=== PATIENT | female | born 1975 | race African-American/Black ===

== ENCOUNTER → 2019-04-25 08:29 | Outpatient (CLI) | payer OTHER, SELFPAY ==
--- NOTE | 2019-04-25 08:30 | DI.MRI.S_ITS ---
PROCEDURE: MR THORACIC SPINE WO CON INDICATIONS: Chronic thoracic pain TECHNIQUE: Noncontrast sagittal T1 spine echo and T2 fast spin echo, sagittal STIR, axial T1 and T2 fast spin echo through the thoracic spine. COMPARISON: None. FINDINGS: Image quality: Excellent. Alignment and Curvature: There is normal bony alignment. Bone Marrow: Marrow is of normal overall signal. No acute vertebral body compression fractures. Spinal Cord: Visualized spinal cord is normal in size and signal. Paraspinous Soft Tissues: No paravertebral masses. Miscellaneous: On axial images, central canal and foramina appear widely patent at all scanned levels. IMPRESSION: Unremarkable thoracic spine MRI. No cord signal abnormality. No canal stenosis or foraminal stenosis. No significant degenerative change. Dictated by: Rony Bethea M.D. on 04/25/2019 at 9:26 Approved by: Rony Bethea M.D. on 04/25/2019 at 9:27
== END ==
PROVIDERS: PCP Nurse Practitioner Gerontology; Visit Provider Physical Medicine & Rehabilitation
DX: M54.6 Pain in thoracic spine (principal); M54.14 Radiculopathy, thoracic region; G89.29 Other chronic pain
CPT/HCPCS: 72146

== ENCOUNTER → 2020-03-30 12:19 | Outpatient (CLI) | payer OTHER, SELFPAY ==
[2020-03-30 12:38] LABS: Hematocrit 32.5 % (36-46); Hemoglobin 10.2 g/dL (12.0-16.0); Mean Corpuscular HGB Conc 31.4 % (30-36); Mean Corpuscular Hemoglobin 24.8 PG (26-34); Platelet Count 156 X10^3/uL (150-400); Red Blood Cell Count 4.12 X10^6/uL (4.0-5.2); Red Cell Distribution Width 17.3 % (11.6-14.8); White Blood Cell Count 5.4 X10^3/uL (4.5-11.0)
[2020-03-30 13:07] LABS: Alanine Aminotransferase 17 IU/L (<35); Albumin 4.4 g/dL (3.5-5.0); Albumin Globulin Ratio 1.2 (1.0-2.8); Alkaline Phosphatase 41 U/L (38-126); Aspartate Aminotransferase 28 IU/L (14-36); BUN Creatinine Ratio 9.4 (6-22); Bilirubin Total 0.8 mg/dL (0.2-1.3); Blood Urea Nitrogen 5 mg/dL (7-17); Calcium 9.2 mg/dL (8.4-10.2); Carbon Dioxide 31 mmol/L (22-32); Chloride 102 mmol/L (98-107); Cholesterol 175 mg/dL (140-199); Estimated Glomerular Filt Rate > 60.0 mL/min (>60); Globulin 3.7 g/dL (1.7-4.1); Glucose 113 mg/dL (70-100); HDL Cholesterol 49 mg/dL (40-60); HEMOLYSIS < 15 (0-50); LDL Cholesterol Calculated 115 mg/dL (<100); Potassium 4.6 mmol/L (3.4-5.1); Sodium 136 mmol/L (137-145); Total Protein 8.1 g/dL (6.3-8.2); Triglycerides 56 mg/dL (35-150)
[2020-03-30 13:48] LABS: TSH w/ Reflex to FT4 1.83 uIU/mL (0.47-4.68)
[2020-03-30 18:20] LABS: Hemoglobin A1C% w Est Avg Glu 6.8 % (4.0-6.0)
== END ==
PROVIDERS: PCP Registered Nurse Diabetes Educator; Referring Provider Registered Nurse Diabetes Educator; Visit Provider Registered Nurse Diabetes Educator
DX: E66.9 Obesity, unspecified (principal); R03.0 Elevated blood-pressure reading, without diagnosis of hypertension; Z00.00 Encounter for general adult medical examination without abnormal findings; R73.01 Impaired fasting glucose
CPT/HCPCS: 36415; 80053; 80061; 83036; 84443; 85027

== ENCOUNTER → 2020-04-03 10:19 | Outpatient (CLI) | payer OTHER, SELFPAY ==
[2020-04-03 10:45] LABS: Hemoglobin A1C% w Est Avg Glu 6.8 % (4.0-6.0)
[2020-04-03 10:57] LABS: HEMOLYSIS < 15 (0-50); Iron 48 ug/dL (37-170)
[2020-04-03 11:09] LABS: Percent Iron Saturation 10 % (15-50); Total Iron Binding Capacity 498 ug/dL (265-497); Transferrin 403 mg/dL (206-381)
== END ==
PROVIDERS: PCP Registered Nurse Diabetes Educator; Referring Provider Registered Nurse Diabetes Educator; Visit Provider Registered Nurse Diabetes Educator
DX: D50.9 Iron deficiency anemia, unspecified (principal); R73.01 Impaired fasting glucose; R73.09 Other abnormal glucose
CPT/HCPCS: 36415; 83036; 83540; 83550

== ENCOUNTER → 2020-05-13 15:05 | Outpatient (CLI) | payer OTHER, SELFPAY ==
--- NOTE | 2020-05-13 | DI.MG.S_ITS ---
BILATERAL DIGITAL SCREENING MAMMOGRAM 3D/2D WITH CAD: 05/13/2020 CLINICAL: Routine screening. Comparison is made to exam dated: 02/28/2019 mammogram - [facility]. The tissue of both breasts is heterogeneously dense. This may lower the sensitivity of mammography. Current study was also evaluated with a Computer Aided Detection (CAD) system. No significant masses, calcifications, or other findings are seen in either breast. There has been no significant interval change. IMPRESSION: NEGATIVE There is no mammographic evidence of malignancy. A 1 year screening mammogram is recommended. This exam was interpreted at Station ID: [id number]. NOTE: For mammograms, a report in lay terms will be sent to the patient. Approximately 15% of breast malignancies will not be visualized mammographically. In the management of a palpable breast mass, a negative mammogram must not discourage biopsy of a clinically suspicious lesion. Electronically Signed By: Lucy siddiqui/adryan:05/13/2020 16:36:10 letter sent: Normal Exam ACR BI-RADS Category 1: Negative 3341F
== END ==
PROVIDERS: PCP Registered Nurse Diabetes Educator; Referring Provider Registered Nurse Diabetes Educator; Visit Provider Registered Nurse Diabetes Educator
DX: Z12.31 Encounter for screening mammogram for malignant neoplasm of breast (principal)
CPT/HCPCS: 77063; 77067

== ENCOUNTER → 2020-09-01 07:44 | Outpatient (CLI) | payer OTHER, SELFPAY ==
--- NOTE | 2020-09-01 07:45 | DI.RAD.S_ITS ---
PROCEDURE: XR SHOULDER RT MIN 2V INDICATIONS: RIGHT SHOULDER PAIN TECHNIQUE: 3 views of the shoulder were acquired. COMPARISON: None. FINDINGS: Bones: No fractures or dislocations. No suspicious bony lesions. Visualized ribs appear intact. Soft tissues: No suspicious soft tissue calcifications. 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 Dictated by: Wolfgang Schultz M.D. on 09/01/2020 at 9:23 Approved by: Wolfgang Schultz M.D. on 09/01/2020 at 9:24
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
== END ==
PROVIDERS: PCP Registered Nurse Diabetes Educator; Referring Provider Physical Medicine & Rehabilitation; Visit Provider Physical Medicine & Rehabilitation
DX: M25.511 Pain in right shoulder (principal); M25.519 Pain in unspecified shoulder; M54.2 Cervicalgia; M19.011 Primary osteoarthritis, right shoulder
CPT/HCPCS: 72050; 73030

== ENCOUNTER → 2020-10-01 07:49 | Outpatient (CLI) | payer OTHER, SELFPAY ==
--- NOTE | 2020-10-01 07:50 | DI.MRI.S_ITS ---
PROCEDURE: MR CERVICAL SPINE WO CON INDICATIONS: Neck pain, paresthesia TECHNIQUE: Noncontrast sagittal T1 spin echo and T2 fast spin echo, sagittal STIR, foraminal oblique sagittal T2 fast spin echo, and axial gradient echo or T2 fast spin echo through the cervical spine. COMPARISON: None. FINDINGS: Image quality: Excellent. Alignment and Curvature: Normal cervical spine vertebral body height and alignment. Bone Marrow: No suspicious focal marrow signal abnormality or bone marrow edema. Spinal Cord: Normal morphology and signal intensity of the cervical cord. Regional Soft Tissues: Prevertebral and paraspinous soft tissues are within normal limits. C2-C3: No spinal canal or neural foraminal stenosis. C3-C4: No spinal canal or neural foraminal stenosis. C4-C5: No spinal canal or neural foraminal stenosis. C5-C6: No spinal canal or neural foraminal stenosis. C6-C7: No spinal canal or neural foraminal stenosis. C7-T1: No spinal canal or neural foraminal stenosis. IMPRESSION: No significant degenerative change or other finding to explain neck pain or radicular symptoms. Dictated by: Eliceo Arzola M.D. on 10/01/2020 at 10:20 Approved by: Eliceo Arzola M.D. on 10/01/2020 at 10:23
== END ==
PROVIDERS: PCP Registered Nurse Diabetes Educator; Referring Provider Physical Medicine & Rehabilitation; Visit Provider Physical Medicine & Rehabilitation
DX: M54.2 Cervicalgia (principal); M25.519 Pain in unspecified shoulder; M54.6 Pain in thoracic spine; G89.29 Other chronic pain
CPT/HCPCS: 72141

== ENCOUNTER → 2021-06-14 11:05 | Outpatient (CLI) | payer OTHER, SELFPAY ==
--- NOTE | 2021-06-14 | DI.MG.S_ITS ---
BILATERAL DIGITAL SCREENING MAMMOGRAM 3D/2D WITH CAD: 06/14/2021 CLINICAL: Routine screening. Comparison is made to exams dated: 05/13/2020 mammogram - [facility] and 02/28/2019 mammogram - [facility]. The tissue of both breasts is heterogeneously dense. This may lower the sensitivity of mammography. Current study was also evaluated with a Computer Aided Detection (CAD) system. No significant masses, calcifications, or other findings are seen in either breast. There has been no significant interval change. IMPRESSION: NEGATIVE There is no mammographic evidence of malignancy. A 1 year screening mammogram is recommended. This exam was interpreted at Station ID: [id number]. NOTE: For mammograms, a report in lay terms will be sent to the patient. Approximately 15% of breast malignancies will not be visualized mammographically. In the management of a palpable breast mass, a negative mammogram must not discourage biopsy of a clinically suspicious lesion. Electronically Signed By: Tomas merritt/adryan:06/14/2021 12:24:09 letter sent: Normal Exam ACR BI-RADS Category 1: Negative 3341F
== END ==
PROVIDERS: PCP Registered Nurse Diabetes Educator; Referring Provider Registered Nurse Diabetes Educator; Visit Provider Registered Nurse Diabetes Educator
DX: Z12.31 Encounter for screening mammogram for malignant neoplasm of breast (principal)
CPT/HCPCS: 77063; 77067

== ENCOUNTER → 2022-07-08 08:50 | Outpatient (CLI) | payer OTHER, SELFPAY ==
[2022-07-08 09:15] LABS: Add Manual Diff / Slide Review NO; Basophils Absolute Auto 0 /uL (0-100); Basophils Percent Auto 0.7 % (0-2); Eosinophils Absolute Auto 100 /uL (0-450); Eosinophils Percent Auto 1.9 % (2-4); Hematocrit 34.5 % (36-46); Lymphocytes Absolute Auto 2300 /uL (1100-4500); Lymphocytes Percent Auto 52.4 % (25-40); Mean Corpuscular HGB Conc 31.8 % (30-36); Mean Corpuscular Hemoglobin 26.5 PG (26-34); Mean Corpuscular Volume 83.4 fL (80-100); Monocytes Absolute Auto 300 /uL (0-900); Neutrophils Absolute Auto 1700 /uL (1500-7000); Platelet Count 134 X10^3/uL (150-400); Red Blood Cell Count 4.14 X10^6/uL (4.0-5.2); White Blood Cell Count 4.4 X10^3/uL (4.5-11.0)
[2022-07-08 09:23] LABS: Hemoglobin A1C% w Est Avg Glu 5.8 % (4.0-6.0)
[2022-07-08 09:28] LABS: HEMOLYSIS < 15 (0-50); Iron 87 ug/dL (37-170)
[2022-07-08 09:32] LABS: Alanine Aminotransferase 17 IU/L (<35); Albumin 4.3 g/dL (3.5-5.0); Albumin Globulin Ratio 1.3 (1.0-2.8); Alkaline Phosphatase 44 U/L (38-126); Aspartate Aminotransferase 22 IU/L (14-36); BUN Creatinine Ratio 26.2 (6-22); Blood Urea Nitrogen 16 mg/dL (7-17); Calcium 9.1 mg/dL (8.4-10.2); Carbon Dioxide 27 mmol/L (22-32); Chloride 102 mmol/L (98-107); Cholesterol 151 mg/dL (140-199); Estimated Glomerular Filt Rate > 60 mL/min (>60); Globulin 3.2 g/dL (1.7-4.1); Glucose 113 mg/dL (70-100); HDL Cholesterol 61 mg/dL (40-60); HEMOLYSIS < 15 (0-50); LDL Cholesterol Calculated 83 mg/dL (<100); Potassium 4.7 mmol/L (3.4-5.1); Sodium 136 mmol/L (137-145); Total Protein 7.5 g/dL (6.3-8.2); Triglycerides 37 mg/dL (35-150)
[2022-07-08 09:38] LABS: Percent Iron Saturation 17 % (15-50); Total Iron Binding Capacity 501 ug/dL (265-497); Transferrin 347 mg/dL (206-381)
[2022-07-08 09:44] LABS: Creatinine Urine Random 79.4 mg/dL
[2022-07-08 09:49] LABS: Microalbumi Creatinin Ratio Ur 50.3 ug/mg CR (<30)
[2022-07-12 23:26] LABS: Ferritin 7 ng/mL (6-137)
== END ==
PROVIDERS: PCP Registered Nurse Diabetes Educator; Referring Provider Registered Nurse Diabetes Educator; Visit Provider Registered Nurse Diabetes Educator
DX: D50.9 Iron deficiency anemia, unspecified (principal); E11.9 Type 2 diabetes mellitus without complications; E66.09 Other obesity due to excess calories; E78.5 Hyperlipidemia, unspecified; R03.0 Elevated blood-pressure reading, without diagnosis of hypertension; Z68.37 Body mass index [BMI] 37.0-37.9, adult
CPT/HCPCS: 36415; 80053; 80061; 82043; 82570; 82728; 83036; 83540; 83550; 84443; 85025

== ENCOUNTER 2022-08-30 05:09 | Emergency (ER) | payer OTHER, SELFPAY ==
[2022-08-30] VITALS (8 sets, daily range): BP systolic 144–188; BP diastolic 76–98; PULSE 63–88; RESP 16–22; TEMP 36.8; O2SAT 99–100; BMI 34.0
--- NOTE | 2022-08-30 05:29 | DI.CT.S_ITS ---
PROCEDURE: CT HEAD/BRAIN WO CON INDICATIONS: Tinnitus with headache TECHNIQUE: Noncontrast 4.5 mm thick angled axial sections acquired from the foramen magnum to the vertex, with coronal and sagittal reformats. For radiation dose reduction, the following was used: automated exposure control, adjustment of mA and/or kV according to patient size. COMPARISON: None. FINDINGS: Image quality: Excellent. CSF spaces: Basal cisterns are patent. No extra-axial fluid collections. Ventricles are normal in size and shape. Brain: No midline shift. No intracranial masses or hemorrhage. Myers-white matter interface is normal. Skull and face: Calvarium and visualized facial bones are intact, without suspicious lesions. Sinuses: Visualized sinuses and mastoids are clear. IMPRESSION: No evidence acute intracranial process. Comment: Final report is concordant with preliminary interpretation provided by [facility]. Dictated by: Rony Bethea M.D. on 08/30/2022 at 7:41 Approved by: Rony Bethea M.D. on 08/30/2022 at 7:42
--- NOTE | 2022-08-30 05:30 | ED.HA ---
HPI - Headache General Chief Complaint: Headache Stated Complaint: headache, Time Seen by Provider: 08/30/22 05:11 Source: patient Mode of arrival: Ambulatory Limitations: no limitations History of Present Illness HPI Narrative: Patient is a 47-year-old female. The initial stated complaint was that she was having headache and that is what was per tried to nursing staff however when I evaluated the patient's she stated that she was here because she had a headache a couple days ago but yesterday it resolved. She does have a history of headaches. She stated that she woke up this morning having ringing in her left ear. She then stated that she thought that she was ?going crazy? she also states that she felt like her equilibrium was off. She stated that she was not currently having headache. Patient was very tearful and difficult to get a direct HPI as she would difficulty expressing why she was here or exactly what specific symptoms she was having. Related Data Previous Rx's Medication Instructions Recorded gabapentin 300 mg capsule 300 mg PO TID #90 caps 03/27/22 ferrous sulfate 325 mg (65 mg 325 mg PO BID #180 tabs 07/12/22 iron) tablet (Iron (ferrous sulfate)) Allergies Allergy/AdvReac Type Severity Reaction Status Date / Time No Known Drug Allergies Allergy Verified 07/12/22 08:29 Review of Systems Constitutional Constitutional: Reports system reviewed and no additional complaints, except as documented Eyes Eyes: Reports system reviewed and no additional complaints, except as documented ENT Ears, Nose, Mouth, and Throat: Reports system reviewed and no additional complaints, except as documented Cardiovascular Cardiovascular: Reports system reviewed and no additional complaints, except as documented Respiratory Respiratory: Reports system reviewed and no additional complaints, except as documented Integumentary/Breasts Skin/Breast: Reports system reviewed and no additional complaints, except as documented Neurologic Neurologic: Reports system reviewed and no additional complaints, except as documented Hematologic/Lymphatic On Anticoagulants: No Patient History Medical History Chronic thoracic spine pain Compression fracture of T4 vertebra Diabetes mellitus type 2, controlled, without complications Dyslipidemia Elevated BP without diagnosis of hypertension Impaired fasting blood sugar Iron deficiency anemia Neck and shoulder pain Obesity Thoracic radiculopathy Surgical History No significant past surgical history Family History Father Drowning Mother HIV disease Social History marital status: unmarried,single number of children: 2 occupational status: employed Smoking Status: Former smoker Tobacco: How many years used: 15 alcohol intake: former (Quit 2012 ) substance use type: does not use Smoking Status: Former smoker Substance Use Type: does not use Exam Initial Vital Signs Initial Vital Signs: Vital Signs Temperature 98.2 F 08/30/22 05:21 Pulse Rate 79 08/30/22 05:21 Respiratory Rate 22 08/30/22 05:21 Blood Pressure 182/98 H 08/30/22 05:21 Pulse Oximetry 100 08/30/22 05:21 Oxygen Delivery Method Room Air 08/30/22 05:21 Const General: cooperative, comfortable and No ill appearing HENMT Head: normal to inspection and normocephalic Ears: TM's normal bilaterally Face and sinus: normal facial exam Mouth: oral mucosae normal Resp Effort & Inspection: normal respiratory effort Auscultation: clear to auscultation bilaterally Cardio Rate: regular rate Rhythm: regular rhythm GI Inspection: normal to inspection and non-distended Skin General: no rashes or lesions noted Neuro General: patient alert, patient awake, patient oriented x3 and moves all extremities Motor: strength 5/5 throughout Sensory Exam: no sensory deficits noted Extrem General: capillary refill normal Psych Other: Very anxious Course Orders Ordered: ED Orders 08/30/22 05:29 CT head/brain wo con Stat 08/30/22 05:30 Basic Metabolic Panel Stat Complete Blood Count AUTO DIFF Stat 08/30/22 05:53 Covid-19 + FLU A/B + RSV - PCR Stat Discontinued Medications Diphenhydramine HCl (Diphenhydramine 50 Mg/Ml Vial) 25 mg IV NOW ONE Stop: 08/30/22 05:22 Sodium Chloride (Normal Saline 0.9%) 1,000 mls @ 1,000 mls/hr IV BOLUS ONE Stop: 08/30/22 06:20 Last Admin: 08/30/22 05:42 Dose: 1,000 mls/hr Documented By: SB Ketorolac Tromethamine (Ketorolac 30 Mg/Ml Vial) 30 mg IV NOW ONE Stop: 08/30/22 05:22 Lorazepam (Lorazepam 2 Mg/Ml Inj) 1 mg IV NOW ONE Stop: 08/30/22 05:29 Last Admin: 08/30/22 05:39 Dose: 1 mg Documented By: SB Metoclopramide HCl (Metoclopramide 10 Mg/2 Ml Inj) 10 mg IV NOW ONE Stop: 08/30/22 05:22 Ondansetron HCl (Ondansetron 4 Mg/2 Ml Inj) 4 mg IV NOW ONE Stop: 08/30/22 05:29 Last Admin: 08/30/22 05:40 Dose: 4 mg Documented By: SB Vital Signs Vital signs: Vital Signs - 8 hr 08/30/22 05:21 Temperature 98.2 F Pulse Rate 79 Respiratory Rate 22 Blood Pressure 182/98 H Pulse Oximetry 100 Oxygen Delivery Method Room Air MDM - Headache Lab Data 08/30/22 05:30 08/30/22 05:30 Labs: Lab Results 08/30/22 08/30/22 08/30/22 Range/Units 05:30 05:30 05:53 WBC 6.9 (4.5-11.0) X10^3/uL RBC 4.52 (4.0-5.2) X10^6/uL Hgb 12.3 (12.0-16.0) g/dL Hct 38.0 (36-46) % MCV 84.0 (80-100) fL MCH 27.1 (26-34) PG MCHC 32.3 (30-36) % RDW 16.9 H (11.6-14.8) % Plt Count 148 L (150-400) X10^3/uL Neut % (Auto) 50.1 (50-75) % Lymph % (Auto) 41.7 H (25-40) % Cannon % (Auto) 5.5 (3-14) % Eos % (Auto) 2.0 (2-4) % Baso % (Auto) 0.7 (0-2) % Neut # (Auto) 3500 (4355-6515) /uL Lymph # (Auto) 2900 (9928-7256) /uL Cannon # (Auto) 400 (0-900) /uL Eos # (Auto) 100 (0-450) /uL Baso # (Auto) 100 (0-100) /uL Sodium 138 (137-145) mmol/L Potassium 4.1 (3.4-5.1) mmol/L Chloride 104 (98-107) mmol/L Carbon Dioxide 24 (22-32) mmol/L BUN 11 (7-17) mg/dL Creatinine 0.78 (0.52-1.04) mg/dL Estimated GFR > 60 (>60) mL/min BUN/Creatinine Ratio 14.1 (6-22) Glucose 135 H (70-100) mg/dL Calcium 8.9 (8.4-10.2) mg/dL SARS-CoV-2 (PCR) Negative (Negative) Influenza A (RT-PCR) Flu a negative (NEGATIVE) Influenza B (RT-PCR) Flu b negative (NEGATIVE) RSV (PCR) Negative (Negative) Imaging Data CT scan - head: Radiologist's Impression: No acute intracranial pathology MDM Narrative Medical decision making narrative: Had a difficult time initially finding out why the patient was actually here as initially she stated that she was having headache but then she told me that she was not. She is certainly having tinnitus in her left ear however her exam is unremarkable. Head CT is negative. She did feel better after Ativan and Zofran. I do have a suspicion that there was a anxiety/panic attack component to her presentation today. Patient states she was feeling much better. Tolerating oral intake. Will discharge patient home with follow-up instructions. She expressed understanding and agreement. Discharge Plan Departure Patient Disposition: Home Clinical Impression: Tinnitus Instructions: Ringing in the Ears Activity Restrictions/Additional Instructions: Recommend that you continue to take all of your medications as directed. I also recommend that you contact your primary doctor for a follow-up. If the ringing in your ear does not improve over the next couple days you may need to follow-up with ENT. Return to the emergency department for new symptoms. Prescriptions: No Action gabapentin 300 mg capsule 300 mg PO TID Qty: 90 4RF ferrous sulfate [Iron (ferrous sulfate)] 325 mg (65 mg iron) tablet 325 mg PO BID Qty: 180 0RF Referrals: Rajan Montero ARNP [Primary Care Provider] - Stand Alone Forms: Patient Portal/API
[2022-08-30] MEDS: LORazepam 2 MG/ML INJ 1 MG IV (05:39)
[2022-08-30] MEDS: ONDANSETRON 4 MG/2 ML INJ IV (05:40)
[2022-08-30] MEDS: SODIUM CHLORIDE 0.9% 1,000 ML 1000 ML IV (05:42)
[2022-08-30 05:44] LABS: Add Manual Diff / Slide Review NO; Basophils Absolute Auto 100 /uL (0-100); Basophils Percent Auto 0.7 % (0-2); Eosinophils Absolute Auto 100 /uL (0-450); Hemoglobin 12.3 g/dL (12.0-16.0); Lymphocytes Absolute Auto 2900 /uL (1100-4500); Lymphocytes Percent Auto 41.7 % (25-40); Mean Corpuscular HGB Conc 32.3 % (30-36); Mean Corpuscular Hemoglobin 27.1 PG (26-34); Monocytes Absolute Auto 400 /uL (0-900); Monocytes Percent Auto 5.5 % (3-14); Neutrophils Absolute Auto 3500 /uL (1500-7000); Neutrophils Percent Auto 50.1 % (50-75); Platelet Count 148 X10^3/uL (150-400); Red Blood Cell Count 4.52 X10^6/uL (4.0-5.2); Red Cell Distribution Width 16.9 % (11.6-14.8); White Blood Cell Count 6.9 X10^3/uL (4.5-11.0)
[2022-08-30 05:49] LABS: BUN Creatinine Ratio 14.1 (6-22); Blood Urea Nitrogen 11 mg/dL (7-17); Calcium 8.9 mg/dL (8.4-10.2); Carbon Dioxide 24 mmol/L (22-32); Chloride 104 mmol/L (98-107); Estimated Glomerular Filt Rate > 60 mL/min (>60); Glucose 135 mg/dL (70-100); HEMOLYSIS < 15 (0-50); Potassium 4.1 mmol/L (3.4-5.1); Sodium 138 mmol/L (137-145)
[2022-08-30 06:47] LABS: Influenza A - CEPHEID Flu A NEGATIVE (NEGATIVE); Influenza B - CEPHEID Flu B NEGATIVE (NEGATIVE); Respiratory Syncytial Virus Negative (Negative)
[2022-08-30 06:48] LABS: COVID-19 CEPHEID 4-PLEX PCR Negative (Negative)
== END 2022-08-30 07:14 | disposition home or self-care (01) ==
PROVIDERS: Emergency Provider Emergency Medicine; PCP Registered Nurse Diabetes Educator
DX: H93.12 Tinnitus, left ear (principal); Z20.822 Contact with and (suspected) exposure to COVID-19
CPT/HCPCS: 0241U; 36415; 70450; 80048; 85025; 96374; 96375; 99284; J2060; J2405

== ENCOUNTER → 2022-10-07 09:28 | Outpatient (CLI) | payer OTHER, SELFPAY ==
[2022-10-07 10:15] LABS: Basophils Absolute Auto 0 /uL (0-100); Eosinophils Absolute Auto 100 /uL (0-450); Eosinophils Percent Auto 1.4 % (2-4); Hematocrit 37.4 % (36-46); Hemoglobin 12.3 g/dL (12.0-16.0); Lymphocytes Absolute Auto 2600 /uL (1100-4500); Lymphocytes Percent Auto 51.6 % (25-40); Mean Corpuscular HGB Conc 32.9 % (30-36); Mean Corpuscular Hemoglobin 27.9 PG (26-34); Mean Corpuscular Volume 84.8 fL (80-100); Monocytes Absolute Auto 300 /uL (0-900); Monocytes Percent Auto 6.8 % (3-14); Neutrophils Absolute Auto 1900 /uL (1500-7000); Neutrophils Percent Auto 39.2 % (50-75); Platelet Count 134 X10^3/uL (150-400); Red Blood Cell Count 4.41 X10^6/uL (4.0-5.2); Red Cell Distribution Width 15.9 % (11.6-14.8); White Blood Cell Count 4.9 X10^3/uL (4.5-11.0)
[2022-10-07 10:18] LABS: Add Manual Diff / Slide Review SLIDE REVIEW
[2022-10-07 10:41] LABS: Anisocytosis 1+
[2022-10-07 10:42] LABS: Platelet Morphology Comment 1+ LARGE PLATELETS
[2022-10-07 13:10] LABS: Creatinine Urine Random 55.2 mg/dL
[2022-10-07 13:14] LABS: Microalbumi Creatinin Ratio Ur 90.5 ug/mg CR (<30)
== END ==
PROVIDERS: PCP Registered Nurse Diabetes Educator; Referring Provider Registered Nurse Diabetes Educator; Visit Provider Registered Nurse Diabetes Educator
DX: R80.9 Proteinuria, unspecified (principal); D64.9 Anemia, unspecified
CPT/HCPCS: 36415; 82043; 82570; 85025

== ENCOUNTER → 2022-10-09 09:27 | Outpatient (CLI) | payer OTHER, SELFPAY | PROVIDERS: PCP Registered Nurse Diabetes Educator; Visit Provider Registered Nurse Diabetes Educator | DX: N89.8 Other specified noninflammatory disorders of vagina (principal) | CPT/HCPCS: 87210 ==

== ENCOUNTER → 2022-10-09 09:46 | Outpatient (CLI) | payer OTHER, SELFPAY ==
--- NOTE | 2022-10-09 09:46 | DI.MG.S_ITS ---
BILATERAL DIGITAL SCREENING MAMMOGRAM 3D/2D WITH CAD: 10/09/2022 CLINICAL: Routine screening. Comparison is made to exams dated: 06/14/2021 mammogram, 05/13/2020 mammogram - [facility], and 02/28/2019 mammogram - [facility]. Both breasts are heterogeneously dense, which may obscure small masses (category c / 51-75% glandular tissue). Current study was also evaluated with a Computer Aided Detection (CAD) system. No significant masses, calcifications, or other findings are seen in either breast. There has been no significant interval change. IMPRESSION: NEGATIVE There is no mammographic evidence of malignancy. A 1 year screening mammogram is recommended. Based on the Tyrer Cuzick model (a risk assessment model) the patient's lifetime risk is 12.7% and her 10 year risk is 2.3%. According to the ACR, ACS, and NCCN guidelines, an annual breast MRI exam along with mammogram is recommended if the patient's lifetime risk is 20% or greater. This exam was interpreted at Station ID: [id number]. NOTE: For mammograms, a report in lay terms will be sent to the patient. Approximately 15% of breast malignancies will not be visualized mammographically. In the management of a palpable breast mass, a negative mammogram must not discourage biopsy of a clinically suspicious lesion. Electronically Signed By: Bonnie michel/adryan:10/09/2022 13:57:33 letter sent: Normal Exam ACR BI-RADS Category 1: Negative 3341F
== END ==
PROVIDERS: PCP Registered Nurse Diabetes Educator; Referring Provider Registered Nurse Diabetes Educator; Visit Provider Registered Nurse Diabetes Educator
DX: Z12.31 Encounter for screening mammogram for malignant neoplasm of breast (principal); N89.8 Other specified noninflammatory disorders of vagina
CPT/HCPCS: 77063; 77067; 87210

== ENCOUNTER 2022-12-21 06:52 | Day surgery (SDC) | payer OTHER, SELFPAY ==
--- NOTE | 2022-12-21 | PATH_ITS ---
[facility] Accession Number: [id number] No. of containers..01 Tissue . 01 Material submitted: . colon - DESCENDING POLYP . 01 Diagnosis: COLON, DESCENDING, POLYP BIOPSY: BENIGN POLYPOID COLONIC MUCOSA WITH SMALL LYMPHOID AGGREGATE AND NEGATIVE FOR DYSPLASIA. SEE NOTE. Note: Recuts was made to assess multiple levels, and shows no hyperplasia or dysplasia. TXN 01/03/2023 1400 Local . 01 Electronically signed: . Daryl Mccallum MD, Pathologist NPI- [id number] . 01 Gross description: . DESCENDING POLYP: Received in formalin is 2 fragment(s) of field, soft tissue measuring 0.7 x 0.5 x 0.2 cm to 0.4 x 0.2 x 0.2 cm submitted entirely in 1 cassette(s) /AAY 12/26/2022 0725 Local . 01 Pathologist provided ICD-10: Z12.11 . 01 CPT . 123165 Specimen Comment: A courtesy copy of this report has been sent to [phone] Performed at: 01 [facility] [address] [place] [address], [place], [place] [id number] MD Luis Eduardo Vegas MD Phone: [phone]
[2022-12-21 07:03] VITALS: BP 133/80; PULSE 61; RESP 17; TEMP 36.2; O2SAT 97; BMI 36.1
[2022-12-21] MEDS: LACTATED RINGERS 1,000 ML 84 ML IV (07:12)
--- NOTE | 2022-12-21 07:37 | PM.HP.1 ---
History of Present Illness History of Present Illness Date Patient Seen: 12/21/22 Time Patient Seen: 07:37 Chief complaint: SDC Narrative: Cyndie is a 47-year-old woman who is here for a screening colonoscopy. It is her first colonoscopy. She has had no melena or rectal bleeding. She is aware of no family history of colon cancer. FOR[facility]LY [facility], [facility] Medical History Chronic thoracic spine pain Compression fracture of T4 vertebra Diabetes mellitus type 2, controlled, without complications Dyslipidemia Elevated BP without diagnosis of hypertension Family history of polycystic kidney disease Headache Impaired fasting blood sugar Iron deficiency anemia Neck and shoulder pain Obesity Thoracic radiculopathy Surgical History No significant past surgical history Family History Father Drowning Mother HIV disease Social History marital status: unmarried,single number of children: 2 household members: family occupational status: employed Smoking Status: Former smoker Tobacco: How many years used: 15 alcohol intake: former substance use type: does not use Meds Home Medications and Allergies Home Medications Medication Instructions Recorded Confirmed Type ferrous sulfate 325 mg (65 mg 325 mg PO BID #180 tabs 07/12/22 12/21/22 Rx iron) tablet (Iron (ferrous sulfate)) amitriptyline 10 mg tablet 20 mg PO BEDTIME #180 tabs 11/29/22 12/21/22 Rx Allergies Allergy/AdvReac Type Severity Reaction Status Date / Time No Known Drug Allergies Allergy Verified 12/21/22 07:00 Exam Vital Signs (past 8 hours): - 12/21/22 07:03 Temperature 97.1 F L Pulse Rate 61 Respiratory Rate 17 Blood Pressure 133/80 Pulse Oximetry 97 Oxygen Delivery Method Room Air Oxygen Delivery Method Room Air Const General: healthy appearing Assessment & Plan Assessment and plan (1) Colon cancer screening: Status: Acute Plan Cyndie is a 47-year-old woman who is here for a colonoscopy for colon cancer screening. We reviewed the risks and benefits and she would like to proceed.
[2022-12-21 08:09] VITALS: BP 113/72; PULSE 72; RESP 13; TEMP 36.1; O2SAT 99
--- NOTE | 2022-12-21 08:09 | PM.OP.COLON ---
Operative Date/Time/Diagnoses Date of procedure: 12/21/22 Time of procedure: 08:09 Pre-op diagnosis: Colon cancer screening Post-op diagnosis: same Procedure & Clinicians Study performed: Colonoscopy Same procedure as scheduled: Yes Surgeon: Natalio Jack Procedure Notes Procedure in detail: Surgeon: Natalio Jack MD Anesthesia: Ankur Ma CRNA Procedure: The patient was brought to the endoscopy suite, placed in left lateral decubitus position. The patient was connected to monitoring devices. A time-out was performed. Sedation was administered. Once the patient was adequately sedated, a digital rectal exam was performed and was normal. The scope was then inserted and advanced to the cecum where the appendiceal orifice was identified and photographed. The scope was then slowly withdrawn over greater than 6 minutes. The mucosa was thoroughly inspected. There were two 4 mm polyps in the descending colon and each was removed with a cold snare and sent together. The scope was retroflexed in the rectum. There were some internal hemorrhoids but no other abnormalities were seen. The scope was straightened and removed. The patient was awakened and brought to recovery. Scope withdrawal time: 8 minutes Sedation time: 16 minutes EBL: 2 mL Findings: 2 4 mm polyps in the descending colon Post-procedure Disposition: PACU
[2022-12-21 08:14] VITALS: BP 117/74; PULSE 68; RESP 18; O2SAT 99
[2022-12-21 08:19] VITALS: BP 113/81; PULSE 66; RESP 17; O2SAT 100
[2022-12-21 08:26] VITALS: BP 129/63; PULSE 66; RESP 18; O2SAT 100
== END 2022-12-21 08:35 | disposition home or self-care (01) ==
PROVIDERS: PCP Registered Nurse Diabetes Educator; Referring Provider Surgery; Visit Provider Surgery
PROC: 0DJD8ZZ Inspection of Lower Intestinal Tract, Via Natural or Artificial Opening Endoscopic (ICD-10-PCS; CPT 45378; principal; 2022-12-21 07:45)
DX: Z12.11 Encounter for screening for malignant neoplasm of colon (principal); K63.5 Polyp of colon
CPT/HCPCS: 45385; J2704

== ENCOUNTER → 2022-12-25 09:45 | Outpatient (CLI) | payer OTHER, SELFPAY ==
--- NOTE | 2022-12-25 09:47 | DI.US.S_ITS ---
PROCEDURE: US RENAL COMPLETE INDICATIONS: MICROALBUMINURIA; FAMILY HISTORY PCKD TECHNIQUE: Real-time scanning was performed of the kidneys and bladder, with image documentation. COMPARISON: None. FINDINGS: Kidneys: Kidneys are normal in size. Right kidney measures 11.6 cm long; left kidney measures 11.6 cm long. Right renal cortical thickness is 1.7 cm; left renal cortical thickness is 2.5 cm. Renal cortical echotexture is normal. No hydronephrosis or nephrolithiasis. No suspicious solid mass lesions. Bladder: Pre-void bladder volume is 200 mL. Post-void residual is 0 mL. Pre-void images demonstrate no intraluminal masses or stones. On pre-void images, bilateral ureteral jets are noted with color Doppler interrogation. (Of note, ureteral jets may not be detectable in up to 25% of cases due to insufficient differences in specific gravity between ureteral and bladder urine). Miscellaneous: No free pelvic fluid. IMPRESSION: Unremarkable renal ultrasound. No evidence of adult onset polycystic kidney disease. Dictated by: Rony Bethea M.D. on 12/25/2022 at 11:11 Approved by: Rony Bethea M.D. on 12/25/2022 at 11:11
--- NOTE | 2022-12-25 09:47 | DI.ECHO.S_ITS ---
[facility] +---------+ : : [address] : : : : [id number] : : : : Phone: [phone]---------+ Echocardiogram Report + + :Name: AILYN BARRAGAN Study Date: 12/25/2022 Height: 60 in : :[facility] ReadingLocation: Weight: 180 lb : : Gender: Female BSA: 1.8 m2 : :: 1975 Age: 47 yrs BP: 138/89 mmHg: :Reason For Study: Cardiac Murmur : :Ordering Physician: LEONIDAS, : :WALTER Performed By: Virginia Garcia : :Referring: WALTER LAUREN : + + Interpretation Summary Normal boht left and right ventricle size and function. The ejection fraction is 60-65%. No valvular abnormality. Procedure: A two-dimensional transthoracic echocardiogram with color flow and Doppler was performed. The study quality was technically adequate. There is no prior echocardiogram noted for this patient. The patient was in normal sinus rhythm during the exam. Left Ventricle: The left ventricle is normal in size and wall thickness. The ejection fraction is estimated to be 60-65%. There are no focal wall motion abnormalities. Diastolic parameters suggest probable normal left ventricular diastolic function and normal filling pressures. Right Ventricle: The right ventricle is normal in size and function. Atria: The left atrial size is normal. Right atrial size is normal. There is no Doppler evidence for an interatrial shunt. Mitral Valve: The mitral valve is normal. There is no mitral valve stenosis. There is trace mitral regurgitation. Aortic Valve: The aortic valve is trileaflet. The aortic valve opens well. There is no aortic valve stenosis. There is trace aortic regurgitation. Tricuspid Valve: The tricuspid valve leaflets are thin and pliable. There is no tricuspid stenosis. There is trace tricuspid regurgitation. The right ventricular systolic pressure is estimated to be at least 15 mmHg based on an estimated right atrial pressure of 3 mm Hg. Pulmonic Valve: The pulmonic valve leaflets are thin and pliable; valve motion is normal. There is no pulmonic valvular stenosis. There is trace pulmonic regurgitation. Great Vessels: The aortic root is normal size. The ascending aorta is normal in size. The pulmonary artery is normal size. The IVC is of normal diameter and collapses greater than 50% with a sniff. This suggests a low right atrial pressure of 3 mm Hg. Pericardium/ Pleura There is no pericardial effusion. There is no pleural effusion. MMode/2D Measurements & Calculations LVIDd: 3.9 cm LVOT diam: 1.9 cm LVIDs: 2.7 cm Ao root diam: 2.4 cm FS: 30.8 % asc Aorta Diam: 3.0 cm EPSS: 0.60 cm IVSd: 0.90 cm LVPWd: 0.90 cm LV dolan. diameter/BSA (cm/m^2): 2.2 LV sys. diameter/BSA (cm/m^2): 1.5 LA A2 area: 16.9 cm2 RA long axis: 5.1 cm LA A4 area: 17.0 cm2 RA area: 12.8 cm2 RA vol: 27.4 ml RA : 15.4 ml/m2 RVD1 (basal): 3.3 cm LVLs ap4: 6.1 cm LVLd ap2: 7.5 cm TAPSE_phl: 2.1 cm LVLs ap2: 6.5 cm Doppler Measurements & Calculations Ao V2 max: 155.7 cm/sec LVOT Max Maurizio: 118.3 cm/sec Ao V2 mean: 107.3 cm/sec LV V1 max P.6 mmHg Ao max P.0 mmHg LV V1 VTI: 26.3 cm Ao mean P.3 mmHg YVONNE(I,D): 2.2 cm2 Ao V2 VTI: 34.7 cm YVONNE(V,D): 2.2 cm2 sev ratio: 0.76 YVONNE indexed to BSA (cm^2/m^2): 1.2 MV E max maurizio: 74.0 cm/sec TR max maurizio: 169.5 cm/sec MV A max maurizio: 72.3 cm/sec TR max P.6 mmHg MV E/A: 1.0 PA V2 max: 97.9 cm/sec Med Peak E' Maurizio: 7.0 cm/sec PA V2 mean: 71.3 cm/sec E/E' med: 10.6 PA mean P.0 mmHg Lat Peak E' Maurizio: 12.0 cm/sec PA pr(Accel): 30.4 mmHg E/E' lat: 6.2 E/e' average: 8.4 MV dec time: 0.26 sec SV(LVOT): 74.6 ml AV VR_phl: 0.76 YVONNE(VTI)/BSA_phl: 1.2 Electronically signed by: Elizabeth Evangelista on Reading Physician:12/25/2022 11:18 AM
== END ==
PROVIDERS: PCP Registered Nurse Diabetes Educator; Referring Provider Registered Nurse Diabetes Educator; Visit Provider Registered Nurse Diabetes Educator
DX: R01.1 Cardiac murmur, unspecified (principal); R80.9 Proteinuria, unspecified; D69.1 Qualitative platelet defects; D69.6 Thrombocytopenia, unspecified; Z82.71 Family history of polycystic kidney
CPT/HCPCS: 36415; 76770; 93306

== ENCOUNTER → 2023-10-27 08:59 | Outpatient (CLI) | payer OTHER, SELFPAY ==
--- NOTE | 2023-10-27 | DI.MG.S_ITS ---
BILATERAL DIGITAL SCREENING MAMMOGRAM 3D/2D WITH CAD: 10/27/2023 CLINICAL: Routine screening. Comparison is made to exams dated: 10/09/2022 mammogram, 06/14/2021 mammogram, and 05/13/2020 mammogram - [facility]. Both breasts are heterogeneously dense, which may obscure small masses (category c / 51-75% glandular tissue). Current study was also evaluated with a Computer Aided Detection (CAD) system. No significant masses, calcifications, or other findings are seen in either breast. There has been no significant interval change. IMPRESSION: NEGATIVE There is no mammographic evidence of malignancy. A 1 year screening mammogram is recommended. Based on the Tyrer Cuzick model (a risk assessment model) the patient's lifetime risk is 12.7% and her 10 year risk is 2.5%. According to the ACR, ACS, and NCCN guidelines, an annual breast MRI exam along with mammogram is recommended if the patient's lifetime risk is 20% or greater. This exam was interpreted at Station ID: [id number]. NOTE: For mammograms, a report in lay terms will be sent to the patient. Approximately 15% of breast malignancies will not be visualized mammographically. In the management of a palpable breast mass, a negative mammogram must not discourage biopsy of a clinically suspicious lesion. Electronically Signed By: Diego dickinson/adryan:10/29/2023 09:00:19 letter sent: Normal Exam ACR BI-RADS Category 1: Negative 3341F
== END ==
PROVIDERS: PCP Registered Nurse Diabetes Educator; Referring Provider Registered Nurse Diabetes Educator; Visit Provider Registered Nurse Diabetes Educator
DX: Z12.31 Encounter for screening mammogram for malignant neoplasm of breast (principal); R92.333 Mammographic heterogeneous density, bilateral breasts
CPT/HCPCS: 77063; 77067

== ENCOUNTER → 2024-05-10 10:53 | Outpatient (CLI) | payer OTHER, SELFPAY ==
[2024-05-10 11:18] LABS: Add Manual Diff / Slide Review NO; Basophils Absolute Auto 0 /uL (0-100); Basophils Percent Auto 0.8 % (0-2); Eosinophils Absolute Auto 100 /uL (0-450); Eosinophils Percent Auto 1.6 % (2-4); Hematocrit 37.2 % (36-46); Hemoglobin 11.8 g/dL (12.0-16.0); Lymphocytes Absolute Auto 2500 /uL (1100-4500); Lymphocytes Percent Auto 53.9 % (25-40); Mean Corpuscular HGB Conc 31.8 % (30-36); Mean Corpuscular Hemoglobin 27.3 PG (26-34); Mean Corpuscular Volume 85.8 fL (80-100); Monocytes Absolute Auto 300 /uL (0-900); Monocytes Percent Auto 6.3 % (3-14); Neutrophils Absolute Auto 1800 /uL (1500-7000); Neutrophils Percent Auto 37.4 % (50-75); Platelet Count 143 X10^3/uL (150-400); Red Blood Cell Count 4.33 X10^6/uL (4.0-5.2); Red Cell Distribution Width 15.4 % (11.6-14.8); White Blood Cell Count 4.7 X10^3/uL (4.5-11.0)
[2024-05-10 11:25] LABS: Hemoglobin A1C% w Est Avg Glu 5.3 % (4.0-6.0)
[2024-05-10 11:50] LABS: Alanine Aminotransferase 19 IU/L (<35); Albumin Globulin Ratio 1.5 (1.0-2.8); Alkaline Phosphatase 42 U/L (38-126); Aspartate Aminotransferase 32 IU/L (14-36); BUN Creatinine Ratio 20.7 (6-22); Bilirubin Total 1.2 mg/dL (0.2-1.3); Blood Urea Nitrogen 17 mg/dL (7-17); Calcium 9.9 mg/dL (8.4-10.2); Carbon Dioxide 27 mmol/L (22-32); Chloride 102 mmol/L (98-107); Cholesterol 203 mg/dL (140-199); Estimated Glomerular Filt Rate > 60 mL/min (>60); Globulin 3.4 g/dL (1.7-4.1); Glucose 91 mg/dL (70-100); HDL Cholesterol 74 mg/dL (40-60); HEMOLYSIS < 15 (0-50); LDL Cholesterol Calculated 119 mg/dL (<100); Potassium 5.3 mmol/L (3.4-5.1); Sodium 138 mmol/L (137-145); Total Protein 8.4 g/dL (6.3-8.2); Triglycerides 49 mg/dL (35-150)
[2024-05-10 12:19] LABS: Microalbumin Urine Random 2.5 mg/dL (0-1.6)
== END ==
LOC: LAB 10:54
PROVIDERS: PCP Registered Nurse Diabetes Educator; Referring Provider Family Medicine; Visit Provider Family Medicine
DX: E11.9 Type 2 diabetes mellitus without complications (principal); E78.5 Hyperlipidemia, unspecified; R03.0 Elevated blood-pressure reading, without diagnosis of hypertension
CPT/HCPCS: 36415; 80053; 80061; 82043; 82570; 83036; 85025

== ENCOUNTER → 2024-10-23 11:50 | Outpatient (CLI) | payer OTHER, SELFPAY ==
[2024-10-23 12:45] LABS: Add Manual Diff / Slide Review NO; Basophils Absolute Auto 0 /uL (0-100); Basophils Percent Auto 0.5 % (0-2); Eosinophils Absolute Auto 0 /uL (0-450); Eosinophils Percent Auto 0.6 % (2-4); Hematocrit 36.2 % (36-46); Hemoglobin 11.7 g/dL (12.0-16.0); Lymphocytes Absolute Auto 1900 /uL (1100-4500); Lymphocytes Percent Auto 36.8 % (25-40); Mean Corpuscular HGB Conc 32.3 % (30-36); Mean Corpuscular Volume 86.9 fL (80-100); Monocytes Absolute Auto 300 /uL (0-900); Monocytes Percent Auto 5.1 % (3-14); Neutrophils Absolute Auto 2900 /uL (1500-7000); Platelet Count 107 X10^3/uL (150-400); Red Blood Cell Count 4.16 X10^6/uL (4.0-5.2); Red Cell Distribution Width 14.3 % (11.6-14.8); White Blood Cell Count 5.2 X10^3/uL (4.5-11.0)
[2024-10-23 12:51] LABS: Hemoglobin A1C% w Est Avg Glu 5.1 % (4.0-6.0)
[2024-10-23 13:03] LABS: Alanine Aminotransferase 16 IU/L (<35); Albumin 4.9 g/dL (3.5-5.0); Albumin Globulin Ratio 1.6 (1.0-2.8); Alkaline Phosphatase 41 U/L (38-126); Aspartate Aminotransferase 30 IU/L (14-36); Bilirubin Total 1.2 mg/dL (0.2-1.3); Blood Urea Nitrogen 24 mg/dL (7-17); Calcium 9.7 mg/dL (8.4-10.2); Carbon Dioxide 24 mmol/L (22-32); Chloride 103 mmol/L (98-107); Cholesterol 172 mg/dL (140-199); Estimated Glomerular Filt Rate > 60 mL/min (>60); Glucose 80 mg/dL (70-99); HDL Cholesterol 68 mg/dL (40-60); HEMOLYSIS 24 (0-50); LDL Cholesterol Calculated 96 mg/dL (<100); Potassium 5.1 mmol/L (3.4-5.1); Sodium 137 mmol/L (137-145); Total Protein 7.9 g/dL (6.3-8.2); Triglycerides 39 mg/dL (35-150)
[2024-10-23 13:30] LABS: TSH w/ Reflex to FT4 0.88 uIU/mL (0.47-4.68)
[2024-10-23 15:35] LABS: Creatinine Urine Random 134.12 mg/dL
[2024-10-23 15:44] LABS: Microalbumin Urine Random 8.3 mg/dL (0-1.6)
== END ==
PROVIDERS: PCP Registered Nurse Diabetes Educator; Referring Provider Registered Nurse Diabetes Educator; Visit Provider Registered Nurse Diabetes Educator
DX: E11.9 Type 2 diabetes mellitus without complications (principal); E78.5 Hyperlipidemia, unspecified; D50.9 Iron deficiency anemia, unspecified; R80.9 Proteinuria, unspecified
CPT/HCPCS: 36415; 80053; 80061; 82043; 82570; 83036; 84443; 85025

== ENCOUNTER → 2025-01-26 09:47 | Outpatient (CLI) | payer OTHER, SELFPAY ==
[2025-01-26 10:18] LABS: Add Manual Diff / Slide Review NO; Hematocrit 32.7 % (36-46); Hemoglobin 10.8 g/dL (12.0-16.0); Lymphocytes Absolute Auto 2200 /uL (1100-4500); Mean Corpuscular HGB Conc 33.0 % (30-36); Mean Corpuscular Hemoglobin 27.6 PG (26-34); Mean Corpuscular Volume 83.8 fL (80-100); Platelet Count 133 X10^3/uL (150-400)
[2025-01-26 11:27] LABS: HEMOLYSIS < 15 (0-50); Iron 51 ug/dL (37-170)
[2025-01-26 11:29] LABS: Blood Urea Nitrogen 14 mg/dL (7-17); Calcium 9.0 mg/dL (8.4-10.2); Carbon Dioxide 24 mmol/L (22-32); Chloride 106 mmol/L (98-107); Estimated Glomerular Filt Rate > 60 mL/min (>60); Glucose 94 mg/dL (70-99); HEMOLYSIS < 15 (0-50); Potassium 4.2 mmol/L (3.4-5.1); Sodium 138 mmol/L (137-145)
[2025-01-26 11:41] LABS: Percent Iron Saturation 13 % (15-50); Total Iron Binding Capacity 385 ug/dL (265-497); Transferrin 317 mg/dL (206-381)
[2025-01-26 12:04] LABS: Ferritin 8 ng/mL (6-137)
[2025-01-26 12:33] LABS: Microalbumi Creatinin Ratio Ur 31.0 ug/mg CR (<30)
[2025-01-26 15:55] LABS: Folate 8.0 ng/mL (2.76-20.0); Vitamin B12 678 pg/mL (239-931)
== END ==
PROVIDERS: PCP Registered Nurse Diabetes Educator; Referring Provider Registered Nurse Diabetes Educator; Visit Provider Registered Nurse Diabetes Educator
DX: D50.9 Iron deficiency anemia, unspecified (principal); D69.6 Thrombocytopenia, unspecified; R80.9 Proteinuria, unspecified; R03.0 Elevated blood-pressure reading, without diagnosis of hypertension
CPT/HCPCS: 36415; 80048; 82043; 82570; 82607; 82728; 82746; 83540; 83550; 85025

== ENCOUNTER → 2025-01-26 11:34 | Outpatient (CLI) | payer OTHER, SELFPAY ==
--- NOTE | 2025-01-26 11:35 | DI.MG.S_ITS ---
MM screening mammo BI: 01/26/2025. BI-RADS: 1 CLINICAL: 49-year old female for bilateral screening mammogram. Tyrer-Cuzick lifetime risk of 9.1%. No personal or first-degree family history of breast cancer. PRIOR EXAMS 10/27/2023, 10/09/2022, 06/14/2021, 05/13/2020. MAMMOGRAPHY TECHNIQUE: 2D and 3D (tomosynthesis) digital mammographic views obtained, with additional images as needed for full coverage. Current study was also evaluated with a Computer Aided Detection (CAD) system. DENSITY C. The breasts are heterogeneously dense, which may obscure small masses. MAMMOGRAPHY FINDINGS Bilateral: No suspicious mass, asymmetry, microcalcification, or other abnormality seen. IMPRESSION: * No evidence of malignancy. RECOMMENDATIONS Bilateral * Annual screening mammography. OVERALL ASSESSMENT CATEGORY BI-RADS-1: Negative. The [employer] recommends annual screening mammography beginning at age 40 for women with average risk of breast cancer. ELECTRONICALLY SIGNED: Alejandra Blandon M.D. on 01/26/2025 at 06:19:22 PM PT Interpreting Station ID: [id number]
== END ==
LOC: MAMMO 11:34
PROVIDERS: PCP Registered Nurse Diabetes Educator; Referring Provider Registered Nurse Diabetes Educator; Visit Provider Registered Nurse Diabetes Educator
DX: Z12.31 Encounter for screening mammogram for malignant neoplasm of breast (principal); R92.333 Mammographic heterogeneous density, bilateral breasts
CPT/HCPCS: 77063; 77067